=== PATIENT | female | born 1975 | race Caucasian/White ===

== ENCOUNTER 2017-12-22 02:09 | Emergency (ER) | payer OTHER ==
--- NOTE | 2017-12-22 02:15 | EDM.PDOC ---
ED HPI GENERAL MEDICAL PROBLEM - General Chief Complaint: Chest Pain Stated Complaint: CHEST PAIN/DIZZY Time Seen by Provider: 12/22/17 02:10 Source of Information: Reports: Patient History Limitations: Reports: Other (no old records) - History of Present Illness INITIAL COMMENTS - FREE TEXT/NARRATIVE: 42 yo female presents with a one hour duration of severe vertigo that awakened her from sleep. Vomited on the way to the hospital. No hx of the same. Is on contraceptive medication only. Non-smoker. Unable to stand due to dizziness. After the dizziness began also noted some L upper chest discomfort. Nexplanon is her contraceptive. Says unable to stand. Is from [place], [place]. To bed tonight about 11:30 pm 12/21/17. Awoke about 0130h with these sx's. Onset: Today Onset Date: 12/22/17 Onset Time: 01:00 Duration: Minutes:, Constant Location: Reports: Head, Chest Quality: Reports: Other (tightness) Severity: Moderate (5/10) Improves with: Reports: None Worsens with: Reports: Other (gets worse when her vertigo intensifies.) Context: Reports: Other (unknown) Associated Symptoms: Reports: Chest Pain, Nausea/Vomiting. Denies: Fever/Chills Treatments [employer]: Reports: Other (see below) (none) Chest Pain Score (Numeric/FACES): 10 - Related Data Allergies Allergy/AdvReac Type Severity Reaction Status Date / Time No Known Allergies Allergy Verified 12/22/17 02:13 Home Meds: Home Meds NK [No Known Home Meds] 12/22/17 [History] ED ROS GENERAL - Review of Systems Review Of Systems: See Below Constitutional: Reports: No Symptoms HEENT: Reports: Vertigo, Vision Change (diplopia) Respiratory: Reports: No Symptoms Cardiovascular: Reports: Chest Pain Endocrine: Reports: No Symptoms GI/Abdominal: Reports: Nausea, Vomiting. Denies: Black Stool, Bloody Stool, Constipation, Diarrhea, Distension, Flatus, Hematemesis, Hematochezia, Melena : Reports: No Symptoms Musculoskeletal: Reports: No Symptoms Skin: Reports: No Symptoms Neurological: Reports: No Symptoms Psychiatric: Reports: No Symptoms ED EXAM, GENERAL - Physical Exam Exam: See Below Exam Limited By: No Limitations General Appearance: Alert, WD/WN, Mild Distress Eye Exam: Bilateral Eye: Normal Inspection, Nystagmus (on left-rhodes gaze), PERRL Ears: Normal External Exam, Normal Canal, Hearing Grossly Normal Ear Exam: Bilateral Ear: Auricle Normal, Canal Normal, TM normal Nose: Normal Inspection, Normal Mucosa, No Blood Throat/Mouth: Normal Inspection, Normal Lips, Normal Oropharynx, Normal Voice, No Airway Compromise Head: Atraumatic, Normocephalic Neck: Normal Inspection, Supple, Non-Tender Respiratory/Chest: No Respiratory Distress, Lungs Clear, Normal Breath Sounds, No Accessory Muscle Use Cardiovascular: Regular Rate, Rhythm, No Edema GI/Abdominal: Normal Bowel Sounds, Soft, Non-Tender, No Distention Extremities: Normal Inspection, Normal Range of Motion, Non-Tender, No Pedal Edema Neurological: Alert, Oriented, CN II-XII Intact, Normal Cognition, Sensory/ Motor Deficit (finger to nose testing bilaterally her fingers hit her lips and miss her nose. ) Psychiatric: Normal Affect, Normal Mood Skin Exam: Warm, Dry, Intact, Normal Color, No Rash Lymphatic: No Adenopathy EKG INTERPRETATION EKG Date: 12/22/17 Time: 02:10 Rhythm: NSR Rate (Beats/Min): 78 [place]: Normal P-Wave: Present QRS: Normal ST-T: Normal QT: Normal Comparison: NA - No Prior EKG Course - Vital Signs Text/Narrative:: No benefit from IV diphenhydramine 50 mg/Ativan 0.[address] Solis, [address] Stroke neurologist, recommends head CT to R/O bleed and then if no bleed ground transport to [facility]. Last Recorded V/S: Last Vital Signs Temp 35.9 C 12/22/17 02:10 Pulse 65 12/22/17 02:38 Resp 13 12/22/17 02:38 BP 148/89 H 12/22/17 02:38 Pulse Ox 100 12/22/17 02:38 - Orders/Labs/Meds Orders: Active Orders 24 hr Category Date Time Status Cardiac Monitoring [RC] .As Directed Care 12/22/17 02:14 Active EKG Documentation Completion [RC] ASDIRECTED Care 12/22/17 02:14 Active Head wo Cont [CT] Stat Exams 12/22/17 03:25 Ordered EKG 12 Lead [EK] Routine Ther 12/22/17 02:14 Ordered Labs: Laboratory Tests 12/22/17 12/22/17 Range/Units 02:20 02:20 WBC 7.4 (4.5-11.0) K/uL RBC 4.39 (3.30-5.50) M/uL Hgb 13.1 (12.0-15.0) g/dL Hct 38.7 (36.0-48.0) % MCV 88 (80-98) fL MCH 30 (27-31) pg MCHC 34 (32-36) % Plt Count 244 (150-400) K/uL Sodium 140 (140-148) mmol/L Potassium 3.6 (3.6-5.2) mmol/L Chloride 107 (100-108) mmol/L Carbon Dioxide 25 (21-32) mmol/L Anion Gap 8.5 (5.0-14.0) mmol/L BUN 15 (7-18) mg/dL Creatinine 0.9 (0.6-1.0) mg/dL Est Cr Clr Drug Dosing 74.02 mL/min Estimated GFR (MDRD) > 60 (>60) Glucose 147 H (74-106) mg/dL Calcium 8.4 L (8.5-10.1) mg/dL Troponin I < 0.017 (0.000-0.056) ng/mL Meds: Medications Discontinued Medications Generic Name Dose Route Start Last Admin Trade Name Freq PRN Reason Stop Dose Admin Diphenhydramine HCl 50 mg 12/22/17 02:20 12/22/17 02:34 Benadryl IVPUSH 12/22/17 02:21 50 mg ONETIME ONE Administration Lactated Ringer's 1,000 mls @ 1,000 mls/hr 12/22/17 02:20 12/22/17 02:37 Ringers, Lactated IV 12/22/17 03:19 1,000 mls/hr BOLUS ONE Administration Lorazepam 0.5 mg 12/22/17 02:20 12/22/17 02:36 Ativan IVPUSH 12/22/17 02:21 0.5 mg ONETIME ONE Administration - Radiology Interpretation Free Text/Narrative:: Head CT negative for bleed. CT Results Date: 12/22/17 CT Results Time: 03:50 Departure - Departure Time of Disposition: 04:00 Disposition: DC/Tfer to Acute Hospital 02 Reason for Transfer *Q: Other Condition: Serious Clinical Impression: Atypical chest pain, Vertigo, Cerebrovascular accident (CVA) involving cerebellum Referrals: PCP,None [Primary Care Provider] - Forms: ED Department Discharge - My Orders Last 24 Hours: My Active Orders 12/22/17 02:14 Cardiac Monitoring [RC] .As Directed EKG Documentation Completion [RC] ASDIRECTED EKG 12 Lead [EK] Routine 12/22/17 03:25 Head wo Cont [CT] Stat - Assessment/Plan Last 24 Hours: My Active Orders 12/22/17 02:14 Cardiac Monitoring [RC] .As Directed EKG Documentation Completion [RC] ASDIRECTED EKG 12 Lead [EK] Routine 12/22/17 03:25 Head wo Cont [CT] Stat
[2017-12-22] MEDS: diphenhydrAMINE 50 MG/ML SDV IVPUSH ONE (02:34)
[2017-12-22] MEDS: LORazepam 2 MG/ML SDV IVPUSH ONE (02:36)
[2017-12-22] MEDS: Lactated Ringers 1,000 ML IV ONE (02:37)
== END 2017-12-22 04:34 ==
LOC: JP.ED 02:09
DX: I63.9 Cerebral infarction, unspecified (principal); R07.89 Other chest pain
CPT/HCPCS: 36415; 70450; 80048; 84484; 85027; 93005; 96361; 96374; 96375; 99285; J1200; J2060; J7120